=== PATIENT | female | born 1965 | race American Indian/Alaskan Native ===

== ENCOUNTER 2019-09-20 08:21 | Emergency (ER) | payer SELFPAY ==
[2019-09-20 08:35] VITALS: BP 164/99
[2019-09-20] MEDS ORDERED: ONDANSETRON 4 MG ODT TAB PO ONE (08:35)
[2019-09-20] MEDS ORDERED: ONDANSETRON 4 MG ODT TAB ONE (08:37)
--- NOTE | 2019-09-20 09:24 | Emergency Department Report ---
Vomiting/Diarrhea - HPI Chief Complaint: Nausea/Vomiting/Diarrhea Stated Complaint: NAUSEA Time Seen by Provider: 09/20/19 08:46 Duration: 1 week Severity: mild Nausea/Vomiting Severity: Mild Diarrhea Severity: None Pain Severity: None Symptoms: Yes Able to Tolerate Fluids, No Watery Diarrhea, No Bloody diarrhea, No Fever, No Recent Unusual Foods, No Recent Untreated Water, No Recent use of Antibiotics, No Family w/ Similar Symptoms, No Contacts w/ Similar Symptoms, No Rash, No Hematuria, No Recent URI Symptoms Other History: This is a 54-year-old -[place] female who presents the emergency room with nausea for 1 week. Past medical history of hypertension and GERD. She reports nausea without vomiting for 1 week. Denies recent travel or unusual foods. Reports symptoms are worse when she lay down. Denies vomiting, diarrhea, chills, fever, abdominal pain, or weakness. ED Review of Systems ROS: Stated complaint: NAUSEA Other details as noted in HPI Constitutional: denies: chills, fever Respiratory: denies: cough, shortness of breath, wheezing Cardiovascular: denies: chest pain, palpitations Gastrointestinal: nausea. denies: abdominal pain, vomiting, diarrhea, constipation, hematemesis, melena, hematochezia Genitourinary: denies: urgency, dysuria, discharge Musculoskeletal: denies: back pain, joint swelling, arthralgia Skin: denies: rash, lesions Neurological: denies: headache, weakness, paresthesias Psychiatric: denies: anxiety, depression ED Past Medical Hx - Past Medical History Previous Medical History?: Yes Hx Hypertension: Yes Hx HIV: No - Surgical History Past Surgical History?: Yes Hx Breast Surgery: Yes (US GUIDED RIGHT BREAST MASS BX 07-01-15) - Social History Smoking Status: Never Smoker Substance Use Type: Alcohol - Medications Home Medications: Home Medications Medication Instructions Recorded Confirmed Last Taken Type HYDROcodone/APAP 5-325 [[place] 1 each PO Q6HR PRN #30 tablet 08/13/15 Unknown Rx 5/325] Lisinopril/Hydrochlorothiazide 1 tab PO QDAY 08/13/15 08/13/15 08/12/15 23:30 History [Zestoretic 20-12.5 mg] Simvastatin [Zocor TAB] 40 mg PO QHS 08/13/15 08/13/15 08/12/15 22:30 History Omeprazole 40 mg PO DAILY #30 capsule. 09/20/19 Unknown Rx Ondansetron [Zofran Odt] 4 mg PO Q8HR PRN #20 tab.[email or web address] 09/20/19 Unknown Rx Vomiting Diarrhea Exam - Exam General: Vital signs noted. No distress. Alert and acting appropriately. HEENT: Yes Moist Mucous Membranes, No Pharyngeal Erythema, No Pharyngeal Exudates, No Rhinorrhea, No Conjuctival Injection, No Frontal Tenderness, No Maxillary Tenderness Neck: No Adenopathy, No Rigidity Lungs: Yes Clear Lung Sounds, Yes Good Air Exchange, No Wheezes, No Stridor, No Cough, No Nasal Flaring, No Retractions, No Use of Accessory Muscles Heart exam: Regular: Yes, Murmur: No, Tachycardia: No Abdomen: Tenderness: No, Peritoneal Signs: No, Distention: No, Hyperactive Bowel sounds: No Skin exam: Rash: No, Edema: No, Normal turgor: Yes Neurologic: Alert and oriented, no deficits. Musculoskeletal: Unremarkable. ED Course Vital Signs 09/20/19 08:33 Temperature 98.1 F Pulse Rate 82 Respiratory 18 Rate Blood Pressure 164/99 O2 Sat by Pulse 96 Oximetry ED Medical Decision Making - Medical Decision Making This is a 54 y.o. female that presents with nausea for 1 week. Patient is stable with stable vital signs. Given zofran odt 4 mg po once in triage and reports feeling better during exam. No abdominal tenderness on exam. All of the symptoms within normal limits. Plan to start zofran and omeprazole for herrera ritis. Discussed plan with patient and agreed to plan. No further questions noted by the patient. Follow up with PCP in 2-3 days. Discharged home with strict return instructions. Critical care attestation.: If time is entered above; I have spent that time in minutes in the direct care of this critically ill patient, excluding procedure time. ED Disposition Clinical Impression: Nausea alone Gastritis Qualifiers: Gastritis type: other gastritis Chronicity: acute Gastritis bleeding: without bleeding Qualified Code(s): K29.00 - Acute gastritis without bleeding Disposition: TO HOME OR SELFCARE Is pt being admited?: No Condition: Stable Instructions: Gastritis (ED), Acute Nausea and Vomiting (ED) Additional Instructions: Frequent hand washing is important to reduce spread. Prompt disinfection of contaminated surfaces with household chlorine bleach- based training assistant and washing of soiled clothing and bedding should be advised. If food or water is thought to be contaminated, it should be avoided. Increase fluid intake. Drinks high in sugars such as carbonated soft drinks, fruit juice, and highly sugared liquids should be avoided. Prescriptions: Omeprazole 40 mg PO DAILY #30 capsule. Ondansetron [Zofran Odt] 4 mg PO Q8HR PRN #20 tab.rapdis PRN Reason: Nausea And Vomiting Referrals: [facility] [Outside] - 3-5 Days [facility] [Outside] - 3-5 Days [facility] [Provider Group] - 3-5 Days CHRIS FLORES MD [Staff Physician] - 3-5 Days Time of Disposition: 09:25
== END 2019-09-20 09:32 | disposition home or self-care (01) ==
LOC: ED 08:21
DX: K29.70 Gastritis, unspecified, without bleeding (principal); R11.0 Nausea; I10 Essential (primary) hypertension; K21.9 Gastro-esophageal reflux disease without esophagitis; Z98.890 Other specified postprocedural states; Z79.899 Other long term (current) drug therapy; Z91.010 Allergy to peanuts; Z91.018 Allergy to other foods
CPT/HCPCS: 99282; Q0162

== ENCOUNTER 2020-04-21 08:36 | Outpatient (CLI) | payer BC ==
--- NOTE | 2020-04-21 09:30 | Mammography Report ---
DIGITAL SCREENING MAMMOGRAM WITH CAD, 04/21/2020 CLINICAL INFORMATION / INDICATION: Routine screening mammography. TECHNIQUE: Digital bilateral 2D mammography was obtained in the craniocaudal and mediolateral obliqu e projections. This examination was interpreted with the benefit of Computer-Aided Detection analysis . COMPARISON: 01/10/2019, 06/22/2016 FINDINGS: Breast Density: There are scattered areas of fibroglandular density. No dominant mass, suspicious calcifications, or architectural distortion in either breast. Postlumpectomy and radiation change noted on the right. Overall, the appearance of the mammogram is u nchanged. IMPRESSION: No mammographic evidence of malignancy. Follow up recommendation: Routine yearly BI-RADS Category 2: Benign. A "normal" or negative report should not discourage follow up or biopsy of a clinically significant f inding. A written summary of these findings will be mailed to the patient. The patient will be entered into a mammography reporting system which will generate a reminder letter for the patient's next appointmen t at the appropriate interval. The [employer] recommends yearly mammograms starting at age 40 and continuing as l saloni as a woman is in good health. Breast MRI is recommended for women with an approximate 20-25% or greater lifetime risk of breast cancer, including women with a strong family history of breast or ova sudarshan cancer or who have been treated for Hodgkin's disease. Signer Name: Marina Purcell MD Signed: 04/21/2020 9:29 AM Workstation Name: [id number]
== END 2020-04-21 08:37 | disposition home or self-care (01) ==
LOC: SPVWC 08:36
PROVIDERS: ATTEND Surgery
DX: Z12.31 Encounter for screening mammogram for malignant neoplasm of breast (principal); N64.89 Other specified disorders of breast
CPT/HCPCS: 77067